=== PATIENT | female | born 1990 | race Caucasian/White ===

== ENCOUNTER → 2017-03-09 | Outpatient (CLI) | payer BC ==
[2017-03-09 10:39] VITALS: BP 129/91
--- NOTE | 2017-03-09 10:39 | Urgent Care T Sheet Gen (E) ---
Intake General Temperature (Fahrenheit): 98.0 Pulse: 76 Blood Pressure Systolic: 129 Blood Pressure Diastolic: 91 (took some DayQuil this morning) Respirations: 18 SPO2: 97 Description of Symptoms patient presents with illness since yesterday. Notes sore throat and headache. No fever. No nasal congestion or cough. Has been exposed to strep throat. Took some DayQuil earlier without much relief. Respiratory Constitutional Symptoms: No syptoms reported EENTM: Throat pain Respiratory: No symptoms reported Cardiovascular: No symptoms reported Neurological: Headache All Other Systems Reviewed Remaining Systems: All other systems reviewed with negative findings Physical Exam Physical Exam General Appearance: WD/WN No apparent distress Eyes, Ears, Nose, Throat Ex: TMs normal Pharyngeal erythemaNo Tonsillar exudate, Other Neck Exam: Supple Lymphadenopathy (anterior cervical) Respiratory Exam: Lungs clear Normal breath sounds Cardiovascular Exam: Regular rate, rhythm Progress/Orders Lab Results Labs Results: Rapid Strep (negative) Departure Urgent Care Impression Impression: Primary Impression: Viral pharyngitis Departure Disposition: 01 HOME OR SELF-CARE Condition: Stable Additional Instructions: Rapid strep was negative Treat symptomatically Rest. Fluids Tylneol or Motrin for pain. Chloraseptic spray for throat pain Return as needed Patient understands DC instructions. All questions were answered. End of report . CRISTHIAN OJEDA Mar 09, 2017 10:25
== END ==
LOC: MHUC 10:09
PROVIDERS: ATTEND Physician Assistant
DX: J02.8 Acute pharyngitis due to other specified organisms (principal)
CPT/HCPCS: 87880; 99213